=== PATIENT | male | born 1965 | race Caucasian/White ===

== ENCOUNTER 2016-12-12 11:05 | Inpatient (IN) | payer OTHER ==
[~2016-12-12] VITALS: Ht 162.6 cm; Wt 73.0 kg
[2016-12-12 18:38] VITALS: BP 118/70
[2016-12-12] MEDS ORDERED: HYD25 PO (18:59)
[2016-12-12] MEDS ORDERED: AMIT25TA9 PO (18:59)
[2016-12-12] MEDS ORDERED: SERT50TA12 PO (18:59)
[2016-12-12 19:51] VITALS: BP 127/82
[2016-12-12] MEDS ORDERED: PNEUMOCOCCAL VACCINE POLYVALENT 0.5 ML VIAL [PPSV23] IM ONE (21:00)
[2016-12-13 02:19] VITALS: BP 120/70
[2016-12-13 08:15] VITALS: BP 121/66
[2016-12-13 08:52] LABS: BASOPHILS % (AUTO) 0.5 % (0.0-2.0); EOSINOPHILS % (AUTO) 0.6 % (1.0-6.0); HEMATOCRIT 52.2 % (41-53); HEMOGLOBIN 17.7 g/dL (13.5-17.5); LYMPHOCYTES # (AUTO) 1.6 K/uL (1.0-4.8); LYMPHOCYTES % (AUTO) 24.4 % (22.0-44.0); MEAN CORPUSCULAR HEMOGLOBIN 31.7 pg (26.0-34.0); MEAN CORPUSCULAR HGB CONC 33.9 G/dL (31.0-37.0); MEAN CORPUSCULAR VOLUME 93 fL (80-100); MONOCYTES # (AUTO) 0.8 K/uL (0.1-1.0); MONOCYTES % (AUTO) 11.4 % (2.0-9.0); NEUTROPHILS # (AUTO) 4.2 K/uL (1.8-7.7); NEUTROPHILS % (AUTO) 63.1 % (40.0-70.0); PLATELET COUNT (AUTO) 348 K/uL (150-450); RED BLOOD CELL COUNT(AUTO) 5.58 MIL/uL (4.50-5.90); RED CELL DISTRIBUTION WIDTH 13.7 % (11.5-14.5); WHITE BLOOD COUNT (AUTO) 6.7 K/uL (4.5-11.0)
[2016-12-13 09:44] LABS: HEMOGLOBIN A1C 5.4 % (4.5-6.2)
[2016-12-13 09:48] LABS: ALANINE AMINOTRANSFERASE 29 U/L (12-78); ALBUMIN 4.2 g/dL (3.4-5.0); ANION GAP 10 mmol/L (8-16); ASPARTATE AMINOTRANSFERASE 19 U/L (15-37); BILIRUBIN,TOTAL 1.2 mg/dL (0.1-1.0); CALCIUM, TOTAL 8.9 mg/dL (8.8-10.5); CARBON DIOXIDE 28 mmol/L (22-29); CHLORIDE 102 mmol/L (98-107); CHOL/HDL RATIO 4.8 (4.2-7.3); CREATININE 0.99 mg/dL (0.60-1.30); GLOMERULAR FILTR. RATE CALC > 60 mL/min (>60); SODIUM SERUM 140 mmol/L (136-145); THYROID STIMULATING HORMONE 3.04 uIU/mL (0.36-3.74); TOTAL PROTEIN, SERUM 7.5 g/dL (6.4-8.2); UREA NITROGEN, BLOOD 17 mg/dL (7-18)
[2016-12-13 10:03] LABS: APPEARANCE,URINE TURBID (CLEAR); GLUCOSE, URINE (UA) NEGATIVE (NEGATIVE); KETONES,URINE NEGATIVE (NEGATIVE); LEUKOCYTE ESTERASE ,URINE NEGATIVE (NEGATIVE); OCCULT BLOOD,URINE NEGATIVE (NEGATIVE); PH,URINE 5.5 (5.0-8.0); PROTEIN,URINE NEGATIVE (NEGATIVE)
[2016-12-13 10:09] LABS: ADD UA MICROSCOPIC YES
[2016-12-13 10:14] LABS: RBC,URINE None Seen /HPF (0-2); WBC,URINE None Seen /HPF (0-5)
[2016-12-13 10:15] LABS: SQUAMOUS EPITHELIAL CELL,UR None Seen /LPF (None Seen)
[2016-12-13 10:16] LABS: AMORPHOUS SEDIMENT,UR Many /LPF (None Seen); CALCIUM OXALATE CRYSTALS,UR Few /LPF (None Seen)
[2016-12-13 16:36] VITALS: BP 124/74
[2016-12-13] MEDS: AMITRIPTYLINE HCL 50 MG TABLET PO SCH (20:40)
[2016-12-13] MEDS ORDERED: AMITRIPTYLINE HCL 25 MG TABLET PO SCH (21:00)
[2016-12-14 01:46] VITALS: BP 112/61
[2016-12-14] MEDS: SERTRALINE HCL 50 MG TABLET PO SCH (08:25)
[2016-12-14 08:38] VITALS: BP 124/76
[2016-12-14 16:04] VITALS: BP 130/86
[2016-12-14] MEDS: AMITRIPTYLINE HCL 50 MG TABLET PO SCH (20:07)
[2016-12-14] MEDS: ZOLPIDEM TARTRATE 10 MG TABLET PO PRN (20:57)
[2016-12-15 01:18] VITALS: BP 128/83
[2016-12-15 08:33] VITALS: BP 133/73
[2016-12-15] MEDS: SERTRALINE HCL 50 MG TABLET PO SCH (08:53)
[2016-12-15 16:22] VITALS: BP 130/86
[2016-12-15] MEDS: AMITRIPTYLINE HCL 50 MG TABLET PO SCH (20:47)
[2016-12-16 00:21] VITALS: BP 124/64
[2016-12-16] MEDS: LORazepam 1 MG TABLET PO PRN ×2 (08:13→16:07)
[2016-12-16] MEDS: SERTRALINE HCL 50 MG TABLET PO SCH ×2 (08:13→16:07)
[2016-12-16 08:15] VITALS: BP 164/80
[2016-12-16 12:17] LABS: GLUCOSE,POINT OF CARE 175 MG/DL (70-110)
[2016-12-16 16:00] VITALS: BP 128/79
[2016-12-16] MEDS: AMITRIPTYLINE HCL 50 MG TABLET PO SCH (20:41)
[2016-12-16] MEDS: ZOLPIDEM TARTRATE 10 MG TABLET PO PRN (20:41)
[2016-12-17 05:58] VITALS: BP 114/69
[2016-12-17 08:27] LABS: HEMATOCRIT 51.6 % (41-53); HEMOGLOBIN 17.7 g/dL (13.5-17.5); MEAN CORPUSCULAR HEMOGLOBIN 31.7 pg (26.0-34.0); MEAN CORPUSCULAR HGB CONC 34.3 G/dL (31.0-37.0); MEAN CORPUSCULAR VOLUME 92 fL (80-100); PLATELET COUNT (AUTO) 295 K/uL (150-450); RED BLOOD CELL COUNT(AUTO) 5.59 MIL/uL (4.50-5.90); RED CELL DISTRIBUTION WIDTH 13.8 % (11.5-14.5); WHITE BLOOD COUNT (AUTO) 7.5 K/uL (4.5-11.0)
[2016-12-17] MEDS: LORazepam 1 MG TABLET PO PRN (08:32)
[2016-12-17] MEDS: SERTRALINE HCL 50 MG TABLET PO SCH (08:33)
[2016-12-17 08:50] VITALS: BP 116/69
[2016-12-17 09:54] LABS: ALANINE AMINOTRANSFERASE 40 U/L (12-78); ALBUMIN 3.9 g/dL (3.4-5.0); ANION GAP 7 mmol/L (8-16); ASPARTATE AMINOTRANSFERASE 20 U/L (15-37); BILIRUBIN,TOTAL 0.9 mg/dL (0.1-1.0); CARBON DIOXIDE 30 mmol/L (22-29); CHLORIDE 104 mmol/L (98-107); CREATININE 0.99 mg/dL (0.60-1.30); GLOMERULAR FILTR. RATE CALC > 60 mL/min (>60); POTASSIUM 4.5 mmol/L (3.5-5.1); SODIUM SERUM 141 mmol/L (136-145); TOTAL PROTEIN, SERUM 7.1 g/dL (6.4-8.2); UREA NITROGEN, BLOOD 18 mg/dL (7-18)
[2016-12-17 09:57] LABS: BAND NEUTROPHILS % (MANUAL) 6 % (1-5); LYMPHOCYTES % (MANUAL) 27 % (22-44); RBC MORPHOLOGY COMMENT NORMAL RBC MORPH; TOTAL CELLS COUNTED 100
[2016-12-17] MEDS ORDERED: SERT50TA12 PO ×2 (10:15→10:16)
== END 2016-12-17 13:00 | disposition home or self-care (01) | DRG 885 ==
LOC: B2S 17:30
PROVIDERS: ADMIT Psychiatry & Neurology Child & Adolescent Psychiatry; ATTEND Psychiatry & Neurology Child & Adolescent Psychiatry
DX: F33.2 Major depressive disorder, recurrent severe without psychotic features (principal); R45.851 Suicidal ideations; I10 Essential (primary) hypertension; F43.12 Post-traumatic stress disorder, chronic; F14.90 Cocaine use, unspecified, uncomplicated; Z72.89 Other problems related to lifestyle; Z90.49 Acquired absence of other specified parts of digestive tract; Z91.5 Personal history of self-harm; Z87.820 Personal history of traumatic brain injury; Z83.3 Family history of diabetes mellitus; Z80.9 Family history of malignant neoplasm, unspecified
CPT/HCPCS: 80307; 82962; 83036; 84439; 84443; 85007